=== PATIENT | female | born 1945 | race Asian ===

== ENCOUNTER 2020-02-06 13:41 | Inpatient (IN) | payer MEDICARE, OTHER ==
[~2020-02-06] VITALS: Ht 147.3 cm; Wt 40.0 kg
[2020-02-06 13:42] VITALS: BP 142/85
--- NOTE | 2020-02-06 14:00 | NUR ---
ED Nurse Note: Pt was brought in by ambulance from home d/t RT shoulder pain extending to her arm. Pt is AOx3, belarusian in speaking. Per pt, she had a fall last morning but pain got worsen today; pt denies any loss of consciousness nor any head trauma, VSS, on RA, afebrile on triage. Placed on bed; safety measures in placed.
--- NOTE | 2020-02-06 14:01 | NUR ---
ED Nurse Note: x-ray at bedside.
[2020-02-06] MEDS ORDERED: Morphine Sulfate 2mg/ml Inj(IV/IM USE ONLY) IVP ONE (15:15)
--- NOTE | 2020-02-06 15:20 | Emergency Room Report ---
History of Present Illness General Chief Complaint: Multiple Trauma/Fall Source: EMS Present Illness HPI Disclaimer: Please note that this report is being documented using DRAGON technology. This can lead to erroneous entry secondary to incorrect interpretation by the dictating instrument. HPI: 74-year-old female presents for evaluation of right shoulder pain. According to patient and her she had a fall from standing last week onto her right side. Denies head injury, loss of conscious, seizure-like activity, back pain. She is reporting pain in the right shoulder and right chest. She is unable to move her right arm. Denies numbness or tingling. Denies skin breakdown or laceration. Her confirms that she did not hit her head and has been trying to take care of her. Did not take any medication prior to arrival. No other injuries reported. No other complaints from patient at this time. PMH: Patient denies PSH: Patient denies Allergies: Patient denies Social Hx: Patient denies Allergies: Coded Allergies: No Known Allergies (Unverified , 02/06/20) COVID-19 Screening Contact w/high risk pt: No Experienced COVID-19 symptoms?: No COVID-19 Testing performed INTERACTIVE DIGITAL MEDIA SPECIALIST: No Nursing Documentation-PMH Past Medical History: No History, Except For Review of Systems All Other Systems: negative except mentioned in HPI Physical Exam Vital Signs Date Time Temp Pulse Resp B/P (MAP) Pulse Ox O2 Delivery O2 Flow Rate FiO2 02/06/20 13:35 96.6 108 142/85 (104) 98 Room Air General: Awake and alert, appears uncomfortable HEENT: NC/AT. EOMI. Chest Wall: Tenderness palpation over the anterior, mid axillary and mid scapular line on the right side without palpable crepitus or deformity. Cardiovascular: Slightly tachycardic. S1 and S2 normal. No murmur appreciated Resp: Normal work of breathing. No cough, wheezing or crackles appreciated Abdomen: Abdomen is soft, nondistended. Nontender Skin: Intact. No abrasions, laceration or rash over the exposed skin MSK: Normal tone and bulk. Unable to actively or passively move the right shoulder secondary to pain. No obvious gross deformity or edema. No tenderness in the elbow wrist or hand. 2+ radial pulse. Neuro: Awake and alert. Mentating appropriately. Medical Decision Making Diagnostic Impression: Primary Impression: Ribs, multiple fractures Additional Impression: Humeral head fracture ER Course Is a 74-year-old female presenting for evaluation 1 week after a fall complaining of right-sided chest and shoulder pain. Concern for fracture x-ray of the right shoulder was obtained which demonstrated multiple nondisplaced rib fractures as well as possible humeral head fracture. CT scan of the chest and shoulder ordered. Labs for admission were obtained and returned within normal limits. She will be admitted to panel physician, Dr. Francois. Orthopedic surgery consulted. Family at bedside. They agree with this treatment plan. Laboratory Tests Test 02/06/20 15:36 02/06/20 17:20 White Blood Count 9.7 K/UL (4.8-10.8) Red Blood Count 4.31 M/UL (4.20-5.40) Hemoglobin 14.0 G/DL (12.0-16.0) Hematocrit 40.1 % (37.0-47.0) Mean Corpuscular Volume 93 FL (80-99) Mean Corpuscular Hemoglobin 32.4 PG (27.0-31.0) H Mean Corpuscular Hemoglobin Concent 34.8 G/DL (32.0-36.0) Red Cell Distribution Width 11.8 % (11.6-14.8) Platelet Count 171 K/UL (150-450) Mean Platelet Volume 5.5 FL (6.5-10.1) L Neutrophils (%) (Auto) 77.3 % (45.0-75.0) H Lymphocytes (%) (Auto) 15.0 % (20.0-45.0) L Monocytes (%) (Auto) 6.3 % (1.0-10.0) Eosinophils (%) (Auto) 0.3 % (0.0-3.0) Basophils (%) (Auto) 1.1 % (0.0-2.0) Prothrombin Time 10.7 SEC (9.30-11.50) Prothrombin Time INR 1.0 (0.9-1.1) Activated Partial Thromboplast Time 24 SEC (23-33) Sodium Level 133 MMOL/L (136-145) L Potassium Level 5.1 MMOL/L (3.5-5.1) Chloride Level 98 MMOL/L (98-107) Carbon Dioxide Level 22 MMOL/L (21-32) Anion Gap 13 mmol/L (5-15) Blood Urea Nitrogen 18 mg/dL (7-18) Creatinine 0.7 MG/DL (0.55-1.30) Estimated Glomerular Filtration Rate > 60 mL/min (>60) Glucose Level 96 MG/DL (74-106) Calcium Level 8.8 MG/DL (8.5-10.1) Total Bilirubin 1.3 MG/DL (0.2-1.0) H Direct Bilirubin 0.4 MG/DL (0.0-0.3) H Aspartate Amino Transferase (AST) 33 U/L (15-37) Alanine Aminotransferase (ALT) 24 U/L (12-78) Alkaline Phosphatase 97 U/L (46-116) Total Protein 8.2 G/DL (6.4-8.2) Albumin 3.3 G/DL (3.4-5.0) L Globulin 4.9 g/dL Albumin/Globulin Ratio 0.7 (1.0-2.7) L Urine Color Yellow Urine Appearance Clear Urine pH 5 (4.5-8.0) Urine Specific [place] 1.025 (1.005-1.035) Urine Protein 2+ (NEGATIVE) H Urine Glucose (UA) Negative (NEGATIVE) Urine Ketones 4+ (NEGATIVE) H Urine Blood 5+ (NEGATIVE) H Urine Nitrite Negative (NEGATIVE) Urine Bilirubin Negative (NEGATIVE) Urine Urobilinogen 1 MG/DL (0.0-1.0) H Urine Leukocyte Esterase Negative (NEGATIVE) Urine RBC 2-4 /HPF (0 - 2) H Urine WBC 0-2 /HPF (0 - 2) Urine Squamous Epithelial Cells Few /LPF (NONE/OCC) Urine Bacteria Occasional /HPF (NONE) Other X-Ray Diagnostic Results Other X-Ray Diagnostic Results : X-Ray ordered: Right shoulder # of Views/Limited Vs Complete: 3 View Indication: Pain EP Interpretation: Yes Interpretation: no dislocation, other - Deformity of the humeral head oblique view and multiple mildly displaced rib fractures on the right side. Impression: Other - Humeral head fracture and rib fractures Electronically Signed by: Electronically signed by Dr. Barak Tijerina CT/MRI/US Diagnostic Results CT/MRI/US Diagnostic Results : Impression IMPRESSION: 1. Acute impacted right humeral neck fracture. 2. Acute fracture of the lateral right third through sixth ribs. 3. Cystic bronchiectasis with focal areas of consolidation with the right middle lobe. An infectious process is not excluded. Last Vital Signs Date Time Temp Pulse Resp B/P (MAP) Pulse Ox O2 Delivery O2 Flow Rate FiO2 02/06/20 13:42 108 Room Air 02/06/20 13:42 96.6 142/85 98 Disposition: ADMITTED INPATIENT Condition: Serious Scripts No Active Prescriptions or Reported Meds Referrals: NON PHYSICIAN (PCP) Barak Tijerina MD Feb 06, 2020 15:20
--- NOTE | 2020-02-06 15:43 | NUR ---
ED Nurse Note: pt went to ct
[2020-02-06 15:52] LABS: BASOPHILS % (AUTO) 1.1 % (0.0-2.0); EOSINOPHILS % (AUTO) 0.3 % (0.0-3.0); HEMATOCRIT 40.1 % (37.0-47.0); MEAN CORPUSCULAR VOLUME 93 FL (80-99); MONOCYTES % (AUTO) 6.3 % (1.0-10.0); NEUTROPHILS % (AUTO) 77.3 % (45.0-75.0); PLATELET COUNT 171 K/UL (150-450); RED BLOOD COUNT 4.31 M/UL (4.20-5.40); RED CELL DISTRIBUTION WIDTH 11.8 % (11.6-14.8); WHITE BLOOD COUNT 9.7 K/UL (4.8-10.8)
[2020-02-06 15:53] LABS: ANION GAP 13 mmol/L (5-15); BLOOD UREA NITROGEN 18 mg/dL (7-18); CALCIUM 8.8 MG/DL (8.5-10.1); CARBON DIOXIDE 22 MMOL/L (21-32); CHLORIDE 98 MMOL/L (98-107); CREATININE 0.7 MG/DL (0.55-1.30); POTASSIUM 5.1 MMOL/L (3.5-5.1); SODIUM 133 MMOL/L (136-145)
--- NOTE | 2020-02-06 15:56 | NUR ---
ED Nurse Note: Pt refused CT; returned at room, notified ERMD.
[2020-02-06 16:04] LABS: ALANINE AMINOTRANSFERASE 24 U/L (12-78); ALBUMIN 3.3 G/DL (3.4-5.0); ALBUMIN/GLOBULIN RATIO 0.7 (1.0-2.7); ALKALINE PHOSPHATASE 97 U/L (46-116); ASPARTATE AMINO TRANSFERASE 33 U/L (15-37); BILIRUBIN,TOTAL 1.3 MG/DL (0.2-1.0)
[2020-02-06 16:06] LABS: BILIRUBIN,DIRECT 0.4 MG/DL (0.0-0.3)
[2020-02-06 17:15] VITALS: BP 135/78
[2020-02-06 17:36] LABS: APPEARANCE,URINE CLEAR; BILIRUBIN, URINE NEGATIVE (NEGATIVE); COLOR,URINE YELLOW; GLUCOSE, URINE (UA) NEGATIVE (NEGATIVE); KETONES,URINE 4+ (NEGATIVE); LEUKOCYTE ESTERASE ,URINE NEGATIVE (NEGATIVE); NITRITE,URINE NEGATIVE (NEGATIVE); PH,URINE 5 (4.5-8.0); PROTEIN,URINE 2+ (NEGATIVE); UROBILINOGEN,URINE 1 MG/DL (0.0-1.0)
--- NOTE | 2020-02-06 18:54 | NUR ---
ED Nurse Note: pt returned from CT
--- NOTE | 2020-02-06 19:14 | NUR ---
ED Nurse Note: Pt resting in bed, VSS no ss of distress noted. will continue to monitor.
--- NOTE | 2020-02-06 19:14 | NUR ---
ED Nurse Note: report given to LUCIO Jauregui for continuity of care
[2020-02-06 19:15] VITALS: BP 129/83
--- NOTE | 2020-02-06 20:12 | NUR ---
NURSE NOTES: Received report from ER. Awaiting for patient to arrive.
--- NOTE | 2020-02-06 20:12 | NUR ---
ED Nurse Note: Report given to [facility] on MS unit
--- NOTE | 2020-02-06 20:25 | NUR ---
ER DISCHARGE NOTE: Patient is cleared to be discharged to MS unit per ERMD, pt is aox4, 99% on room air, with stable vital signs. pt was able to verbalize understanding. pt is able to ambulate with steady gait. pt took all belongings. Report given to LUCIO Wall on MS unit. Pt transferred to unit with 1 INVESTMENT UNDERWRITER
--- NOTE | 2020-02-06 20:30 | NUR ---
NURSE NOTES: Patient arrived on the unit. Oriented to the unit and the room. Vital signs stable condition. No skin issues. Belongings confirmed. Nepali speaking. Will continue to monitor and provide care as ordered.
--- NOTE | 2020-02-06 20:44 | NUR ---
NURSE NOTES: Reached Dr. Francois for admission orders. Received order to contact Dr. Chong for admission orders.
--- NOTE | 2020-02-06 20:52 | NUR ---
NURSE NOTES: Reached Dr. Chong for admission orders. Admission order received. Will carry out the order as given.
[2020-02-06] MEDS: Heparin 5000 units/ml inj SUBQ SCH (21:15)
[2020-02-06] MEDS ORDERED: Zolpidem 5mg tab ORAL PRN (21:15)
--- NOTE | 2020-02-06 22:10 | NUR ---
NURSE NOTES: Patient refused heparin. Explained the benefit and risk x3. Patient continues to refuse saying she doesn't want to take anything at this time.
--- NOTE | 2020-02-06 23:00 | NUR ---
NURSE NOTES: Patient verbalized that patient is confused about the hospitalization. Patient requested to speak with her son, Mohan Vidal. Connected them via a phone call. After the phone call, RN explained about the hospitalization again. Patient was able to verbalize understanding and agreed to hospitalization at this time. Informed about the patient's rights. Will continue to monitor the patient and provide care as ordered.
[2020-02-07] VITALS: BP 120/80
[2020-02-07 04:00] VITALS: BP 120/68
[2020-02-07 07:24] LABS: EOSINOPHILS % (AUTO) 0.8 % (0.0-3.0); HEMATOCRIT 36.5 % (37.0-47.0); HEMOGLOBIN 12.7 G/DL (12.0-16.0); LYMPHOCYTES % (AUTO) 21.4 % (20.0-45.0); MEAN CORPUSCULAR VOLUME 89 FL (80-99); MONOCYTES % (AUTO) 7.7 % (1.0-10.0); NEUTROPHILS % (AUTO) 69.1 % (45.0-75.0); PLATELET COUNT 221 K/UL (150-450); RED BLOOD COUNT 4.08 M/UL (4.20-5.40); RED CELL DISTRIBUTION WIDTH 10.9 % (11.6-14.8); WHITE BLOOD COUNT 6.6 K/UL (4.8-10.8)
[2020-02-07 07:35] LABS: ANION GAP 10 mmol/L (5-15); BLOOD UREA NITROGEN 19 mg/dL (7-18); CARBON DIOXIDE 26 MMOL/L (21-32); CHLORIDE 99 MMOL/L (98-107); CREATININE 0.8 MG/DL (0.55-1.30); POTASSIUM 4.3 MMOL/L (3.5-5.1); SODIUM 135 MMOL/L (136-145)
--- NOTE | 2020-02-07 07:40 | NUR ---
NURSE HAND-OFF: Important Events on Shift: New admission. Patient Status:Stable Diet:Regular Diet Pending Orders:None Pending Results/Labs: Results of CT/Xray results not available on imagings Pending MD notification:None Latest Vital Signs: Temperature 97.7 , Pulse 78 , B/P 120 /68 , Respiratory Rate 18 , O2 SAT 95 , Room Air, O2 Flow Rate . Vital Sign Comment:Stable Latest Quiroz Fall Score: 55 Fall Risk: High Risk Safety Measures: Call light Within Reach, Bed Alarm Zone 1, Side Rails Side Rails x2, Bed position Low and Locked. Fall Precautions: Yellow Socks Yellow Gown Door Sign Patient Fall Education Report given to LUCIO Landa.
--- NOTE | 2020-02-07 07:45 | NUR ---
NURSE NOTES: Received patient in bed,awake, alert and oriented x4. Patient verbalized " I do not know why I am here. I want to go home." RN explained to the patient about her condition and orientation given. Patient stated that it is her first hospitalization. RN talked to the patient in Kiswahili in a calm manner and education and emotional support given. Bed is in lowest position and locked. Call light is within reach. Bed alarm is on for safety due to h/o fall. Patient noted with bruise on right upper arm and unable to move her right upper ex's due to pain and fx. Patient complains of pain when trying to move her ex's but no pain when resting. Will continue to monitor. Patient refused to eat. Encouraged patient to eat. Will continue to monitor.
[2020-02-07 08:00] VITALS: BP 108/68
[2020-02-07] MEDS: Heparin 5000 units/ml inj SUBQ SCH ×2 (08:44→20:08)
--- NOTE | 2020-02-07 09:05 | NUR ---
NURSE NOTES: Patient refused heparin SQx3. RN educated on medication and the risks and benefits. Patient fully understood but refused x3. Dr. Francois is aware of refusal of med and food. Will continue to monitor.
--- NOTE | 2020-02-07 09:30 | NUR ---
NURSE NOTES: 2D echo is in progress.
--- NOTE | 2020-02-07 10:10 | NUR ---
NURSE NOTES: Patient is Jehovah witness, per patient, no blood transfusion but surgery is ok if needed.
[2020-02-07 12:00] VITALS: BP 110/69
--- NOTE | 2020-02-07 12:15 | History and Physical Report ---
DATE OF ADMISSION: 02/06/2020 TIME SEEN: 9 a.m. CONSULTANTS: 1. Reji Chauhan MD. 2. Jesus Alberto Chong MD. CHIEF COMPLAINT: Fall, right humeral head fracture, rib fracture. BRIEF HISTORY: This is a 74-year-old female who lives at home with family, on the street apparently tripped and fell over and sustained a fall injuring her right shoulder and rib, came to [place], diagnosed with right humeral head fracture and rib fracture and admitted to medical floor. Currently, calm, in bed, no complaint. The patient did not lose any consciousness or have any chest pain at this time. Currently calm in bed, slight right shoulder pain, no complaint. REVIEW OF SYSTEMS: No chest pain. No shortness of breath. No nausea, vomiting, or diarrhea. PAST MEDICAL HISTORY: Nothing. PAST SURGICAL HISTORY: None. MEDICATIONS: Include Tylenol, clonidine, zolpidem, heparin, morphine. ALLERGIES: Denies. SOCIAL HISTORY: No smoking. No alcohol. No intravenous drug abuse. FAMILY HISTORY: Noncontributory. PHYSICAL EXAMINATION: GENERAL: Calm in bed, oriented x3, no acute distress. VITAL SIGNS: Temperature is 97 degrees, pulse 97, respiratory rate 20, blood pressure 120/80. CARDIOVASCULAR: No murmur. LUNGS: Distant and clear. ABDOMEN: Positive bowel sounds. Soft, nontender, nondistended. EXTREMITIES: No cyanosis or edema. Her right shoulder is flexed at 90 degrees and slightly guarding. NEUROLOGIC: The patient moves all extremities, slightly weak. LABORATORY DATA: Labs at this time show CBC is normal. BMP shows sodium 135, BUN 19, otherwise BMP is normal. Albumin 3.3. INR is 1.0 and PTT is 24. Urinalysis is 5+ blood, 4+ ketone, 2+ protein. ASSESSMENT: Fall, right humeral head fracture, rib fracture. PLAN: 1. PT. 2. Dietary followup. 3. Pain control. 4. Resume home medications. 5. eval. 6. CBC and BMP in the morning. Darryl Francois D.O. DR: Layne JOB#: [id number] CC:
--- NOTE | 2020-02-07 13:00 | NUR ---
NURSE NOTES: RN paged Dr. Chauhan if doctor is going to see the patient today. Awaiting for return call.Patient consumed 75% of lunch.
--- NOTE | 2020-02-07 15:30 | NUR ---
NURSE NOTES: RN received order from Dr. Chauhan to provide arm sling. Arm sling is @ the bedside. Dr. Chauhan will see the patient tonight or early tomorrow morning. Patient's son Mohan Vidal wanted to talk to Dr. Chauhan and given son's phone number to Dr. Chauhan.
[2020-02-07 16:00] VITALS: BP 122/73
--- NOTE | 2020-02-07 18:14 | Cardiac Electrophysiology PN ---
Subjective Subjective [id number] Objective Last 24 Hour Vital Signs Date Time Temp Pulse Resp B/P (MAP) Pulse Ox O2 Delivery O2 Flow Rate FiO2 02/07/20 16:00 97.9 89 18 122/73 (89) 95 02/07/20 12:00 97.5 83 18 110/69 (83) 97 02/07/20 09:00 Room Air 02/07/20 08:00 98.0 89 18 108/68 (81) 95 02/07/20 04:00 78 18 120/68 (85) 95 02/07/20 00:00 97.7 97 20 120/80 (93) 95 02/06/20 22:48 Room Air 02/06/20 20:25 97.2 91 16 125/76 99 Room Air 02/06/20 19:15 97.2 92 16 129/83 99 Room Air Laboratory Tests Test 02/07/20 06:40 White Blood Count 6.6 K/UL (4.8-10.8) Red Blood Count 4.08 M/UL (4.20-5.40) L Hemoglobin 12.7 G/DL (12.0-16.0) Hematocrit 36.5 % (37.0-47.0) L Mean Corpuscular Volume 89 FL (80-99) Mean Corpuscular Hemoglobin 31.2 PG (27.0-31.0) H Mean Corpuscular Hemoglobin Concent 34.9 G/DL (32.0-36.0) Red Cell Distribution Width 10.9 % (11.6-14.8) L Platelet Count 221 K/UL (150-450) Mean Platelet Volume 5.2 FL (6.5-10.1) L Neutrophils (%) (Auto) 69.1 % (45.0-75.0) Lymphocytes (%) (Auto) 21.4 % (20.0-45.0) Monocytes (%) (Auto) 7.7 % (1.0-10.0) Eosinophils (%) (Auto) 0.8 % (0.0-3.0) Basophils (%) (Auto) 1.0 % (0.0-2.0) Sodium Level 135 MMOL/L (136-145) L Potassium Level 4.3 MMOL/L (3.5-5.1) Chloride Level 99 MMOL/L (98-107) Carbon Dioxide Level 26 MMOL/L (21-32) Anion Gap 10 mmol/L (5-15) Blood Urea Nitrogen 19 mg/dL (7-18) H Creatinine 0.8 MG/DL (0.55-1.30) Estimat Glomerular Filtration Rate > 60 mL/min (>60) Glucose Level 104 MG/DL (74-106) Calcium Level 9.0 MG/DL (8.5-10.1) Jesus Alberto Chong MD Feb 07, 2020 18:14
--- NOTE | 2020-02-07 19:15 | NUR ---
NURSE NOTES: Received report from LUCIO Landa. Pt Serbian speaking, resting in bed, AAO x 3, on room air. Pt confused and said " I need to go to home." Arm sling applied on R arm. IV site intact and patent. Fall risk maintained. No labored breathing. Bed locked, lowest position, alarm on, side rails up, call light within reach. Will continue to monitor.
--- NOTE | 2020-02-07 19:29 | NUR ---
NURSE HAND-OFF: Important Events on Shift:refused heparin. Patient Status: stable Diet: regular Pending Orders: Pending Results/Labs: Pending MD notification: Latest Vital Signs: Temperature 97.9 , Pulse 89 , B/P 122 /73 , Respiratory Rate 18 , O2 SAT 95 , Room Air, O2 Flow Rate . Vital Sign Comment: Latest Quiroz Fall Score: 55 Fall Risk: High Risk Safety Measures: Call light Within Reach, Bed Alarm Zone 2, Side Rails Side Rails x3, Bed position Low and Locked. Fall Precautions: Yellow Socks Yellow Gown Door Sign Patient Fall Education Report given to Narcisa and endorsed plan of care.
[2020-02-07 20:00] VITALS: BP 110/70
--- NOTE | 2020-02-07 22:15 | Consultation ---
DATE OF CONSULTATION: 02/07/2020 CARDIOLOGY CONSULTATION CONSULTING PHYSICIAN: Jesus Alberto Chong MD REFERRING PHYSICIAN: Darryl Francois DO REASON FOR CONSULTATION: Preoperative clearance. HISTORY OF PRESENT ILLNESS: Patient is a 74-year-old lady who presented to the emergency room with right shoulder pain. According to the patient and , she had a fall last week on the right side and did not have any head injury or loss of consciousness or any seizure-like activity. Right shoulder and right chest pain continued. Patient came to the emergency room. Her confirms that she did not hit her head and is trying to take care of her. In the emergency room, patient's blood pressure was 142/85 with a pulse of 100, and pulse ox 98%. Patient was noted to have right shoulder fracture as well as nondisplaced rib fracture. Cardiology consultation was requested for preoperative clearance in case patient would need it. REVIEW OF SYSTEMS: Negative other than what was mentioned in the history of present illness. PAST MEDICAL HISTORY: As mentioned above. FAMILY HISTORY: Noncontributory. SOCIAL HISTORY: She lives at home. Does not smoke or drink alcohol. PHYSICAL EXAMINATION: VITAL SIGNS: Blood pressure is 122/73, pulse 89, respirations 18, temperature 97.9. HEAD AND NECK: Showed no JVD. LUNGS: Clear. CARDIOVASCULAR: Shows regular S1 and S2 with no gallop or murmur. ABDOMEN: Soft. EXTREMITIES: Right shoulder is in a sling. Her CT showed acute impacted right humeral neck fracture and acute fracture of the lateral right third through sixth ribs. LABORATORY AND DIAGNOSTIC DATA: Her labs show white count of 6.3, hemoglobin 12.7, hematocrit 36.5, platelet count 221. Sodium 135, potassium 4.3, BUN 19, creatinine 0.8, and glucose of 104. INR is 1. ASSESSMENT AND PLAN: 1. Right shoulder as well as right rib fracture. Patient denies any prior myocardial infarction or coronary artery disease or any congestive heart failure. Her echocardiogram showed ejection fraction of 60%. We will get an EKG and keep the patient on p.r.n. clonidine for blood pressure management. 2. Humeral head fracture and multiple rib fractures. Further evaluation per Orthopedic Surgery. Thank you very much for allowing me to participate in the care of this patient. Please do not hesitate to contact me for any questions regarding my evaluation. Jesus Alberto Chong M.D. DR: MIKAELA JOB#: [id number] CC:
[2020-02-08] VITALS: BP 107/73
[2020-02-08 04:00] VITALS: BP 110/70
--- NOTE | 2020-02-08 06:18 | Diagnostic Imaging Report ---
EXAM: XR Right Shoulder Complete, 2 or More Views CLINICAL HISTORY: TRAUMA TECHNIQUE: Two or more views of the right shoulder. COMPARISON: None FINDINGS: Bones/joints: Irregularity of the cortex of the right humeral head on the external rotation view could represent a nondisplaced fracture. Further evaluation could be performed with CT or MRI if clinically indicated. Displaced fractures of the right posterior seventh, eighth, and ninth ribs. No dislocation. Osteopenia. Soft tissues: Unremarkable. IMPRESSION: 1. Irregularity of the cortex of the right humeral head on the external rotation view could represent a nondisplaced fracture. Further evaluation could be performed with CT or MRI if clinically indicated. 2. Displaced fractures of the right posterior seventh, eighth, and ninth ribs.
--- NOTE | 2020-02-08 06:19 | Diagnostic Imaging Report ---
EXAM: CT Right Upper Extremity Without Intravenous Contrast, Shoulder CLINICAL HISTORY: INJ TECHNIQUE: Axial computed tomography images of the right shoulder without intravenous contrast. CTDI is 6.5 mGy and DLP is 209.90 mGy-cm. One or more of the following dose reduction techniques were used: automated exposure control, adjustment of the mA and/or kV according to patient size, use of iterative reconstruction technique. COMPARISON: No relevant prior studies available. FINDINGS: Bones/joints: Acute impacted right humeral neck fracture. Acute fracture of the lateral right third through sixth ribs. No dislocation. Soft tissues: Unremarkable. Lung apices: Cystic bronchiectasis with focal areas of consolidation with the right middle lobe. An infectious process is not excluded. Pleural space: Biapical pleural-parenchymal scarring. Trace right- sided pleural effusion.. IMPRESSION: 1. Acute impacted right humeral neck fracture. 2. Acute fracture of the lateral right third through sixth ribs. 3. Cystic bronchiectasis with focal areas of consolidation with the right middle lobe. An infectious process is not excluded.
--- NOTE | 2020-02-08 06:19 | Diagnostic Imaging Report ---
EXAM: CT Chest Without Intravenous Contrast CLINICAL HISTORY: INJ TECHNIQUE: Axial computed tomography images of the chest without intravenous contrast. CTDI is 6.5 mGy and DLP is 209.9 mGy-cm. One or more of the following dose reduction techniques were used: automated exposure control, adjustment of the mA and/or kV according to patient size, use of iterative reconstruction technique. COMPARISON: No relevant prior studies available. FINDINGS: Lungs: Scattered areas of scarring atelectasis within the upper lobes with calcification of the left. Cystic bronchiectasis with focal areas of consolidation with a right middle lobe which may be inflammatory or infectious. Pleural space: Small right pleural effusion. No pneumothorax. Heart: Unremarkable. No cardiomegaly. No significant pericardial effusion. Bones/joints: Acute impacted right humeral neck fracture. Acute fracture of the lateral right third through sixth ribs. Acute fracture of the posterior right seventh and eighth ribs. No dislocation. Soft tissues: Unremarkable. Vasculature: Unremarkable. No thoracic aortic aneurysm. Lymph nodes: Unremarkable. IMPRESSION: 1. Acute impacted right humeral neck fracture. 2. Acute fracture of the lateral right third through sixth ribs. Acute fracture of the posterior right seventh and eighth ribs. 3. Cystic bronchiectasis with focal areas of consolidation with a right middle lobe which may be inflammatory or infectious.
--- NOTE | 2020-02-08 06:20 | Cardiology Report ---
APPROVED REPORT EXAM: Two-dimensional and M-mode echocardiogram with Doppler and color Doppler. INDICATION OTHER M-Mode DIMENSIONS IVSd0.7 (0.7-1.1cm)Left Atrium (MM)2.4 (1.6-4.0cm) LVDd4.3 (3.5-5.6cm)Aortic Root2.6 (2.0-3.7cm) PWd1.0 (0.7-1.1cm)Aortic Cusp Exc.1.7 (1.5-2.0cm) IVSs1.0 cm LVDs3.1 (2.5-4.0cm) PWs0.6 cm <Conclusion> Normal left ventricular chamber size, systolic function and wall motion. Left ventricular ejection fraction estimated to be 60%. All other cardiac chamber sizes are within normal limits. Calcification of aortic valve with adequate cusp excursion. Thickened mitral valve leaflets with normal excursion. Mitral annulus and aortic root calcification. Pulmonic valve not well visualized. Normal tricuspid valve structure. IVC at normal size with physiologic collapse. A color flow and spectral Doppler study was performed and revealed: Trace mitral regurgitation. Mitral inflow indicates normal left ventricular diastolic function. Mild tricuspid regurgitation. Tricuspid systolic velocities suggests peak right ventricular systolic pressure of 30mmHg. Trace pulmonic regurgitation.
--- NOTE | 2020-02-08 06:42 | NUR ---
NURSE HAND-OFF: Important Events on Shift:AMS, confused Patient Status: stable Diet: reg Pending Orders: Pending Results/Labs: Pending MD notification: Latest Vital Signs: Temperature 97.3 , Pulse 78 , B/P 110 /70 , Respiratory Rate 16 , O2 SAT 96 , Room Air, O2 Flow Rate . Vital Sign Comment: Latest Quiroz Fall Score: 55 Fall Risk: High Risk Safety Measures: Call light Within Reach, Bed Alarm Zone 2, Side Rails Side Rails x3, Bed position Low and Locked. Fall Precautions: Yellow Socks Yellow Gown Door Sign Patient Fall Education Addendum: 02/08/20 at 0723 by SHAKEEL EATON RN RN HAND-OFF: Report given to Aliza.
[2020-02-08 06:59] LABS: HEMATOCRIT 36.7 % (37.0-47.0); HEMOGLOBIN 12.7 G/DL (12.0-16.0); LYMPHOCYTES % (AUTO) 16.1 % (20.0-45.0); MEAN CORPUSCULAR VOLUME 89 FL (80-99); MONOCYTES % (AUTO) 7.5 % (1.0-10.0); NEUTROPHILS % (AUTO) 74.4 % (45.0-75.0); PLATELET COUNT 229 K/UL (150-450); RED CELL DISTRIBUTION WIDTH 11.4 % (11.6-14.8)
[2020-02-08 07:11] LABS: ANION GAP 6 mmol/L (5-15); BLOOD UREA NITROGEN 17 mg/dL (7-18); CALCIUM 8.6 MG/DL (8.5-10.1); CARBON DIOXIDE 29 MMOL/L (21-32); CHLORIDE 103 MMOL/L (98-107); CREATININE 0.7 MG/DL (0.55-1.30); POTASSIUM 4.3 MMOL/L (3.5-5.1); SODIUM 138 MMOL/L (136-145)
--- NOTE | 2020-02-08 07:40 | NUR ---
NURSE NOTES: Report received from Narcisa VALDES. Patient seen on rounds, AxOx1-2, not in distress, currently comfortable in bed. Noted arm sling on right arm/shoulder. PIV on left forearm patent and intact. Pt is incontinent, no skin issues noted. Bed low and locked, siderails up x2, zone alarms on 1, patient is a high fall risk, fall precautions in place, call light placed within reach and instructed to call nurse for assistance. Will continue to monitor.
[2020-02-08 08:00] VITALS: BP 133/63
--- NOTE | 2020-02-08 08:30 | Consultation ---
Consult Note Consult Note 74 yo female with fall onto right side. multiple rib fractures and rt impacted humeral neck fracture. no surgery needed. sling immobilization with gentle ROM rt elbow/hand/wrist. Pendulum exercises . nwb rt UE. f/u Dr Chauhan in 2 weeks for updated Xray Ashlyn Manzano Feb 08, 2020 08:30
[2020-02-08] MEDS: Heparin 5000 units/ml inj SUBQ SCH ×2 (08:54→20:10)
--- NOTE | 2020-02-08 09:45 | General Progress Note ---
Subjective Constitutional: Reports: weakness Allergies: Coded Allergies: PENICILLINS (Verified Allergy, Unknown, 02/06/20) Patient verbalized allergies to penicillin All Systems: reviewed and negative except above Subjective calm sitting sl gen pain Objective Last 24 Hour Vital Signs Date Time Temp Pulse Resp B/P (MAP) Pulse Ox O2 Delivery O2 Flow Rate FiO2 02/08/20 04:00 97.3 78 16 110/70 (83) 96 02/08/20 00:00 97.8 92 16 107/73 (84) 95 02/07/20 21:00 Room Air 02/07/20 20:00 98.2 90 16 110/70 (83) 95 02/07/20 16:00 97.9 89 18 122/73 (89) 95 02/07/20 12:00 97.5 83 18 110/69 (83) 97 Intake and Output 02/07/20 02/08/20 19:00 07:00 Intake Total 1000 ml Balance 1000 ml Intake Other 1000 ml # Voids 3 Laboratory Tests 02/08/20 06:10: White Blood Count 6.0, Red Blood Count 4.10L, Hemoglobin 12.7, Hematocrit 36.7L, Mean Corpuscular Volume 89, Mean Corpuscular Hemoglobin 31.0, Mean Corpuscular Hemoglobin Concent 34.7, Red Cell Distribution Width 11.4L, Platelet Count 229, Mean Platelet Volume 5.0L, Neutrophils (%) (Auto) 74.4, Lymphocytes (%) (Auto) 16.1L, Monocytes (%) (Auto) 7.5, Eosinophils (%) (Auto) 1.0, Basophils (%) (Auto) 1.0, Sodium Level 138, Potassium Level 4.3, Chloride Level 103, Carbon Dioxide Level 29, Anion Gap 6, Blood Urea Nitrogen 17, Creatinine 0.7, Estimat Glomerular Filtration Rate > 60, Glucose Level 120H, Calcium Level 8.6, Troponin I 0.000, Pro-B-Type Natriuretic Peptide 282H Height (Feet): 4 Height (Inches): 10.00 Weight (Pounds): 91 General Appearance: lethargic EENT: normal ENT inspection Neck: normal alignment Cardiovascular: normal peripheral pulses, normal rate, regular rhythm Respiratory/Chest: chest wall non-tender, lungs clear, normal breath sounds Abdomen: normal bowel sounds, non tender, soft Extremities: normal inspection Edema: no edema noted Arm (L), no edema noted Arm (R), no edema noted Leg (L), no edema noted Leg (R), no edema noted Pedal (L), no edema noted Pedal (R), no edema noted Generalized Neurologic: motor weakness Skin: normal pigmentation, warm/dry Assessment/Plan Problem List: (1) Weak ICD Codes: R53.1 - Weakness SNOMED: 48922850 (2) Humeral head fracture ICD Codes: S42.293A - Other displaced fracture of upper end of unspecified humerus, initial encounter for closed fracture SNOMED: 269135322 (3) Pain ICD Codes: R52 - Pain, unspecified SNOMED: 38487381 (4) Ribs, multiple fractures ICD Codes: S22.49XA - Multiple fractures of ribs, unspecified side, initial encounter for closed fracture SNOMED: 9464376 Status: unchanged Assessment/Plan: pt diet pain control cbc bmp am aru eval and transfer Darryl Francois DO Feb 08, 2020 09:45
--- NOTE | 2020-02-08 11:09 | NUR ---
*-*DISCHARGE PLANNING*-* PATIENT HAS BEEN REFERRED TO: VICTORIA CANO P: [phone]
[2020-02-08 12:00] VITALS: BP 109/67
--- NOTE | 2020-02-08 12:34 | Consultation ---
History of Present Illness General Date patient seen: Feb 08, 2020 Time patient seen: 12:00 - pm Chief Complaint: Right shoulder fracture Referring physician: Alessandro Reason for Consultation: Pain Management consultation Present Illness HPI This is a 74 year old female being seen on the med/surge floor of [facility]. She was admitted under the care of Dr. Francois due to fall found to have humeral head fractures of right shoulder and right rib fractures of 7, 8 and 9th rib. She den ies pain and is sitting up in bed eating lunch. We were consulted so pt has adequate pain control while here in the hospital. Allergies: Coded Allergies: PENICILLINS (Verified Allergy, Unknown, 02/06/20) Patient verbalized allergies to penicillin Medication History No Active Prescriptions or Reported Meds Patient History Healthcare decision maker Resuscitation status Advanced Directive on File Past Medical/Surgical History Past Medical/Surgical History: (1) Weak Review of Systems Constitutional: Reports: weakness Eye: Reports: no symptoms ENT: Reports: no symptoms Respiratory: Reports: no symptoms Cardiovascular: Reports: no symptoms Gastrointestinal: Reports: no symptoms Genitourinary: Reports: no symptoms Musculoskeletal: Reports: joint pain Skin: Reports: no symptoms Psychiatric: Reports: no symptoms Neurological: Reports: no symptoms Endocrine: Reports: no symptoms Hematologic/Lymphatic: Reports: no symptoms Physical Exam General Appearance: no apparent distress, alert HEENT: PERRL Neck: non-tender, normal alignment Respiratory/Chest: decreased breath sounds Abdomen: non tender, soft Extremities: other - right shoulder decreased ROM Neurologic: alert, oriented x 3 Last 24 Hour Vital Signs Date Time Temp Pulse Resp B/P (MAP) Pulse Ox O2 Delivery O2 Flow Rate FiO2 02/08/20 11:29 Room Air 02/08/20 09:00 Room Air 02/08/20 08:00 98.2 85 18 133/63 (86) 97 02/08/20 04:00 97.3 78 16 110/70 (83) 96 02/08/20 00:00 97.8 92 16 107/73 (84) 95 02/07/20 21:00 Room Air 02/07/20 20:00 98.2 90 16 110/70 (83) 95 02/07/20 16:00 97.9 89 18 122/73 (89) 95 Intake and Output 02/07/20 02/08/20 19:00 07:00 Intake Total 1000 ml Balance 1000 ml Intake Other 1000 ml # Voids 3 Laboratory Tests Test 02/08/20 06:10 White Blood Count 6.0 K/UL (4.8-10.8) Red Blood Count 4.10 M/UL (4.20-5.40) L Hemoglobin 12.7 G/DL (12.0-16.0) Hematocrit 36.7 % (37.0-47.0) L Mean Corpuscular Volume 89 FL (80-99) Mean Corpuscular Hemoglobin 31.0 PG (27.0-31.0) Mean Corpuscular Hemoglobin Concent 34.7 G/DL (32.0-36.0) Red Cell Distribution Width 11.4 % (11.6-14.8) L Platelet Count 229 K/UL (150-450) Mean Platelet Volume 5.0 FL (6.5-10.1) L Neutrophils (%) (Auto) 74.4 % (45.0-75.0) Lymphocytes (%) (Auto) 16.1 % (20.0-45.0) L Monocytes (%) (Auto) 7.5 % (1.0-10.0) Eosinophils (%) (Auto) 1.0 % (0.0-3.0) Basophils (%) (Auto) 1.0 % (0.0-2.0) Sodium Level 138 MMOL/L (136-145) Potassium Level 4.3 MMOL/L (3.5-5.1) Chloride Level 103 MMOL/L (98-107) Carbon Dioxide Level 29 MMOL/L (21-32) Anion Gap 6 mmol/L (5-15) Blood Urea Nitrogen 17 mg/dL (7-18) Creatinine 0.7 MG/DL (0.55-1.30) Estimat Glomerular Filtration Rate > 60 mL/min (>60) Glucose Level 120 MG/DL (74-106) H Calcium Level 8.6 MG/DL (8.5-10.1) Troponin I 0.000 ng/mL (0.000-0.056) Pro-B-Type Natriuretic Peptide 282 pg/mL (0-125) H Height (Feet): 4 Height (Inches): 10.00 Weight (Pounds): 91 Medications Current Medications Medications (Trade) Dose Ordered Sig/Juaquin Route PRN Reason Start Time Stop Time Status Last Admin Dose Admin Acetaminophen (Tylenol) 650 mg Q4H PRN ORAL Pain/Fever 02/06/20 21:15 03/07/20 21:14 Clonidine HCl (Catapres Tab) 0.1 mg Q4H PRN ORAL SBP>170 02/06/20 21:15 05/06/20 21:14 Heparin Sodium (Porcine) (Heparin 5000 units/ml) 5,000 units EVERY 12 HOURS SUBQ 02/06/20 21:15 03/22/20 21:14 02/08/20 08:54 Zolpidem Tartrate (Ambien) 5 mg HSPRN PRN ORAL Insomnia 02/06/20 21:15 02/13/20 21:14 Assessment/Plan Assessment/Plan: (1) Right shoulder pain (2) Right humeral fracture (3) Right chest wall pain (4) Rib fractures Patient will continue on Tylenol D/w Dr. Simmons and he concurred. David Caceres Feb 08, 2020 12:34
--- NOTE | 2020-02-08 14:15 | Consultation ---
DATE OF CONSULTATION: 02/08/2020 ORTHOPEDIC CONSULTATION CONSULTING PHYSICIAN: Reji Chauhan MD. HISTORY OF PRESENT ILLNESS: The patient is a pleasant 74-year-old female who had a fall at home onto her right side. She is complaining of right arm pain and right side pain. She was admitted to [facility] with multiple rib fractures and right humerus fracture. Orthopedics consult has been called. The patient has already been given a right upper extremity sling, which she is wearing. She has a sling on the right upper extremity, complains of pain here. PAST MEDICAL HISTORY: None. PAST SURGICAL HISTORY: None. CURRENT MEDICATIONS: Please see chart. ALLERGIES: None. SOCIAL HISTORY: She lives at home with her . She is independent with her activities. PHYSICAL EXAMINATION: GENERAL: She is a pleasant woman. She is cooperative with examination. EXTREMITIES: Exam of the right upper extremity sling is developing ecchymosis into the right upper arm with tenderness over the humerus and some swelling in this area. She can move the elbow, hand, and wrist. She is neurovascularly intact. She also has some tenderness over the right side ribs. LABORATORY AND DIAGNOSTIC DATA: X-RAY, MRI and CT: X-ray of the shoulder is reviewed. There is a nondisplaced humeral neck fracture and rib fractures of the seventh, eighth, and ninth ribs on the right side. CT of the shoulder was also reviewed noting an impacted humeral neck fracture on the right as well as showing evidence of the multiple rib fractures. IMPRESSION: 1. Right impacted humeral neck fracture. 2. Right rib fractures - 7, 8, and 9. DISCUSSION: At this time, I discussed with the patient my findings. There is no surgical intervention needed for this, but I would recommend she stay in a sling and perform gentle pendulum exercises with the shoulder as well as elbow, hand, and wrist exercises to avoid stiffness. She should be nonweightbearing on the right side and ensure medication is ordered for pain management. I would like to see her back in the office as an outpatient in two weeks for updated x-rays at which point we will advance her in her mobility and transition out of the sling if fracture appears to be stabilizing and healing. All questions were answered. with regards to rib fractures, she understands they will go onto healing although they may take time. Reji Chauhan M.D. Ann Christensen DR: Jamal JOB#: [id number] CC: LY
--- NOTE | 2020-02-08 14:15 | NUR ---
P.T Note: P.T evaluation completed and tx initiated. Please refer to P.T evaluation for current functional statues. Pt is alert, oriented to self and place but not time and current situation. Pt is periodically confused however follows commands appropriately and verbalizes needs and pain. Pt is limited by generalized weakness and pain on the R shoulder/upper arm and R rib cage 10/10 resulting to fear of mobility and resistance. Pt needed verbal cues/manual cues, extended time and MAX A x 2 to initiate and complete turning/rolling and supine to/from sitting transitions and MAX A X 1 for sit to/from standing, bed to/from chair transitions. Pt able to take 5-6 tiny steps with hand held/max a x 1 with A x 1P to follow with chair for safety. Pt tolerated entire P.T/tx session well. Will continue with POC. Recommend ARU for intensive rehab post hospital stay VS home P.T. Pt is cleared for OOB activities with nursing assist.
--- NOTE | 2020-02-08 14:21 | Cardiac Electrophysiology PN ---
Assessment/Plan Assessment/Plan 1. Right shoulder as well as right rib fracture. Patient denies any prior myocardial infarction or coronary artery disease or any congestive heart failure. Her echocardiogram showed ejection fraction of 60%. EKG showed NSR with Anterior T wave inversion 2. Humeral head fracture and multiple rib fractures. Nonsurgical per Orthopedic Surgery. Subjective Subjective No CP or SOB.Is being transferred to ARU Objective Last 24 Hour Vital Signs Date Time Temp Pulse Resp B/P (MAP) Pulse Ox O2 Delivery O2 Flow Rate FiO2 02/08/20 12:00 98.2 74 18 109/67 (81) 95 02/08/20 11:29 Room Air 02/08/20 09:00 Room Air 02/08/20 08:00 98.2 85 18 133/63 (86) 97 02/08/20 04:00 97.3 78 16 110/70 (83) 96 02/08/20 00:00 97.8 92 16 107/73 (84) 95 02/07/20 21:00 Room Air 02/07/20 20:00 98.2 90 16 110/70 (83) 95 02/07/20 16:00 97.9 89 18 122/73 (89) 95 Intake and Output 02/07/20 02/08/20 19:00 07:00 Intake Total 1000 ml Balance 1000 ml Intake Other 1000 ml # Voids 3 Laboratory Tests Test 02/08/20 06:10 White Blood Count 6.0 K/UL (4.8-10.8) Red Blood Count 4.10 M/UL (4.20-5.40) L Hemoglobin 12.7 G/DL (12.0-16.0) Hematocrit 36.7 % (37.0-47.0) L Mean Corpuscular Volume 89 FL (80-99) Mean Corpuscular Hemoglobin 31.0 PG (27.0-31.0) Mean Corpuscular Hemoglobin Concent 34.7 G/DL (32.0-36.0) Red Cell Distribution Width 11.4 % (11.6-14.8) L Platelet Count 229 K/UL (150-450) Mean Platelet Volume 5.0 FL (6.5-10.1) L Neutrophils (%) (Auto) 74.4 % (45.0-75.0) Lymphocytes (%) (Auto) 16.1 % (20.0-45.0) L Monocytes (%) (Auto) 7.5 % (1.0-10.0) Eosinophils (%) (Auto) 1.0 % (0.0-3.0) Basophils (%) (Auto) 1.0 % (0.0-2.0) Sodium Level 138 MMOL/L (136-145) Potassium Level 4.3 MMOL/L (3.5-5.1) Chloride Level 103 MMOL/L (98-107) Carbon Dioxide Level 29 MMOL/L (21-32) Anion Gap 6 mmol/L (5-15) Blood Urea Nitrogen 17 mg/dL (7-18) Creatinine 0.7 MG/DL (0.55-1.30) Estimat Glomerular Filtration Rate > 60 mL/min (>60) Glucose Level 120 MG/DL (74-106) H Calcium Level 8.6 MG/DL (8.5-10.1) Troponin I 0.000 ng/mL (0.000-0.056) Pro-B-Type Natriuretic Peptide 282 pg/mL (0-125) H Objective HEAD AND NECK: No JVD. LUNGS: Clear. CARDIOVASCULAR: Regular S1 and S2 with no gallop or murmur. ABDOMEN: Soft. EXTREMITIES: Right shoulder is in a sling. Jesus Alberto Chong MD Feb 08, 2020 14:21
[2020-02-08 16:00] VITALS: BP 116/73
--- NOTE | 2020-02-08 16:47 | NUR ---
CASE MANAGEMENT:REVIEW SI;RT NECK HUMERAL FRACTURE. RT 3RD-6TH RIB FRACTURE. 98.2 92 18 133/63 95% ON RA IS;HEPARIN SUBQ Q12 MED SURG STATUS DCP;FROM HOME PLAN; ARU PENDING PT EVAL NOTES
--- NOTE | 2020-02-08 19:26 | NUR ---
NURSE HAND-OFF: Important Events on Shift: No adverse events noted Patient Status: Stable Diet: Regular Pending Orders: None Pending Results/Labs: None Pending MD notification: Latest Vital Signs: Temperature 98.2 , Pulse 96 , B/P 116 /73 , Respiratory Rate 18 , O2 SAT 95 , Room Air, O2 Flow Rate . Vital Sign Comment: Latest Quiroz Fall Score: 70 Fall Risk: High Risk Safety Measures: Call light Within Reach, Bed Alarm Zone 2, Side Rails Side Rails x3, Bed position Low and Locked. Fall Precautions: Yellow Socks Yellow Gown Door Sign Patient Fall Education Report given to Ella Valladares RN.
[2020-02-08 20:00] VITALS: BP 121/60
--- NOTE | 2020-02-08 20:00 | NUR ---
NURSE NOTES: Received patient awake in bed, no s/s of acute distress, able to make needs known. Patient confused, wanting to get up to go to bathroom, reminded patient that she has a "purewick" in place and she in unable to get up to go to the bathroom at this time. Phone connected to room, son able to talk to patient via phone. Bed low and locked.
[2020-02-09] VITALS: BP 125/70
[2020-02-09 04:00] VITALS: BP 138/74
[2020-02-09 06:10] LABS: BASOPHILS % (AUTO) 1.4 % (0.0-2.0); EOSINOPHILS % (AUTO) 0.8 % (0.0-3.0); HEMATOCRIT 36.1 % (37.0-47.0); HEMOGLOBIN 12.6 G/DL (12.0-16.0); LYMPHOCYTES % (AUTO) 18.6 % (20.0-45.0); MEAN CORPUSCULAR VOLUME 90 FL (80-99); MONOCYTES % (AUTO) 8.3 % (1.0-10.0); NEUTROPHILS % (AUTO) 70.9 % (45.0-75.0); PLATELET COUNT 241 K/UL (150-450); RED CELL DISTRIBUTION WIDTH 11.4 % (11.6-14.8)
[2020-02-09 06:18] LABS: ANION GAP 3 mmol/L (5-15); BLOOD UREA NITROGEN 18 mg/dL (7-18); CALCIUM 8.8 MG/DL (8.5-10.1); CARBON DIOXIDE 31 MMOL/L (21-32); CHLORIDE 107 MMOL/L (98-107); CREATININE 0.7 MG/DL (0.55-1.30); POTASSIUM 4.8 MMOL/L (3.5-5.1); SODIUM 141 MMOL/L (136-145)
--- NOTE | 2020-02-09 07:26 | NUR ---
HAND-OFF: Report given to LUCIO Avery.
--- NOTE | 2020-02-09 07:45 | NUR ---
NURSE NOTES: PT AXOX2, TO NAME AND LOCATION. PT IS DISORIENTED TO SITUATION AND AT TIMES WILL PROVIDE A DIFFERENT ANSWER TO A QUESTION RN ASKS. PT STATES PAIN IS MINIMAL ON RIGHT SHOULDER. PT GUARDS THE RIGHT UPPER EXTREMITY WHEN BEING REPOSITIONED AND DURING BEDSIDE CARE. PT STATES SHE DOES NOT NEED PAIN MEDICATION AT THIS TIME WHEN RN EDUCATED PT ON PRN TYLENOL FOR PAIN. PT DOES ATTEMPT TO GET OUT OF BED BUT IS TOO WEAK TO LEAVE THE BED. PT IS IN SEMI-LIMON'S POSITION WITH BED IN LOWEST POSITION WITH BEDSIDE RAILS X3 RAISED. PT EDUCATED ON USING CALL LIGHT FOR ASSISTANCE. PT VERBALIZED UNDERSTANDING. WILL CONTINUE TO MONITOR.
[2020-02-09 08:00] VITALS: BP 128/72
[2020-02-09] MEDS: Heparin 5000 units/ml inj SUBQ SCH (08:46)
--- NOTE | 2020-02-09 08:49 | General Progress Note ---
Subjective Date patient seen: Feb 09, 2020 Time patient seen: 08:00 - am Allergies: Coded Allergies: PENICILLINS (Verified Allergy, Unknown, 02/06/20) Patient verbalized allergies to penicillin Subjective This is a 74 year old female being seen on the med/surge floor of [facility]. Patient is in bed and showing no signs of pain or distress. Denies pain at this time. Objective Last 24 Hour Vital Signs Date Time Temp Pulse Resp B/P (MAP) Pulse Ox O2 Delivery O2 Flow Rate FiO2 02/09/20 08:00 97.3 92 20 128/72 (90) 98 02/09/20 04:00 98.3 89 18 138/74 (95) 95 02/09/20 00:00 98.0 85 18 125/70 (88) 95 02/08/20 20:42 Room Air 02/08/20 20:00 98.4 86 18 121/60 (80) 95 02/08/20 16:00 98.2 96 18 116/73 (87) 95 02/08/20 12:00 98.2 74 18 109/67 (81) 95 02/08/20 11:29 Room Air 02/08/20 09:00 Room Air Intake and Output 02/08/20 02/09/20 19:00 07:00 Intake Total 460 ml Balance 460 ml Intake Oral 460 ml # Voids 2 2 # Bowel Movements 1 Laboratory Tests 02/09/20 05:10: White Blood Count 6.0, Red Blood Count 4.00L, Hemoglobin 12.6, Hematocrit 36.1L, Mean Corpuscular Volume 90, Mean Corpuscular Hemoglobin 31.4H, Mean Corpuscular Hemoglobin Concent 34.8, Red Cell Distribution Width 11.4L, Platelet Count 241, Mean Platelet Volume 5.4L, Neutrophils (%) (Auto) 70.9, Lymphocytes (%) (Auto) 18.6L, Monocytes (%) (Auto) 8.3, Eosinophils (%) (Auto) 0.8, Basophils (%) (Auto) 1.4, Sodium Level 141, Potassium Level 4.8, Chloride Level 107, Carbon Dioxide Level 31, Anion Gap 3L, Blood Urea Nitrogen 18, Creatinine 0.7, Estimat Glomerular Filtration Rate > 60, Glucose Level 117H, Calcium Level 8.8 Height (Feet): 4 Height (Inches): 10.00 Weight (Pounds): 91 Objective Constitutional: Reports: weakness Eye: Reports: no symptoms ENT: Reports: no symptoms Respiratory: Reports: no symptoms Cardiovascular: Reports: no symptoms Gastrointestinal: Reports: no symptoms Genitourinary: Reports: no symptoms Musculoskeletal: Reports: joint pain Skin: Reports: no symptoms Psychiatric: Reports: no symptoms Neurological: Reports: no symptoms Endocrine: Reports: no symptoms Hematologic/Lymphatic: Reports: no symptoms Assessment/Plan Assessment/Plan: (1) Right shoulder pain (2) Right humeral fracture (3) Right chest wall pain (4) Rib fractures Patient will continue on Tylenol D/w Dr. Simmons and he concurred. David Caceres Feb 09, 2020 08:49
--- NOTE | 2020-02-09 10:45 | NUR ---
NURSE NOTES: PHYSICAL THERAPIST HECTOR AT BEDSIDE. PER HECTOR, PT IS VERY UNSTEADY WHEN STANDING AND LEANS BACK. PT MAY USE BEDSIDE COMMODE IF NEEDING TO USE RESTROOM BUT NOT RECOMMENDED TO AMBULATE TO BATHROOM.
--- NOTE | 2020-02-09 11:29 | NUR ---
NURSE NOTES: RN SPOKE TO PT'S SON, AYAN, WHO IS STILL DECIDING ON TAKING HER HOME OR TO REHAB FACILITY UPON DISCHARGE. AYAN VOICED CONCERN OVER PT BEBETO COVID IF DISCHARGED TO A FACILITY. PT HAD QUESTIONS REGARDING HOME CARE AND AMBULANCE TRANSPORTATION. RN DIRECTED PT TO ARCHITECTURE TECHNICIAN HAYDE. RN MADE AYAN AWARE PT REQUIRES CONSTANT BEDSIDE CARE. PT IS UNABLE TO AMBULATE INDEPENDENTLY AND NEEDS COMPLETE ASSISTANCE FOR ALL ADLs. PER AYAN, HE LIVES WITH PT AND HIS FATHER. AYAN AND HIS FATHER CAN PROVIDE CARE. PER CRN, DR MORIN WILL BE ROUNDING IN THE AFTERNOON TO DECIDE IF PT WILL BE DISCHARGED. WILL CONTINUE TO MONITOR.
--- NOTE | 2020-02-09 11:58 | NUR ---
GEOMETRICIAN NOTE S/W PATIENTS SON AYAN OHWELL WHO EXPRESSED THAT HE IS REFUSING SNF PLACEMENT FOR HIS MOTHER AT THIS TIME D/T CONCERNS OF COVID. THIS CM EDUCATED PATIENTS SON ON RECOMMENDATION AND NEED FOR SNF PLACEMENT FOR REHAB. AYAN HOWELL CONTINUED TO BE FIRM ON DECISION TO HAVE PATIENT RETURN HOME UPON DC. PATIENTS SON INFORMED THAT MD WILL BE NOTIFIED OF REFUSAL FOR SNF. PATIENTS SON FURTHER STATED THAT HE WILL VISIT PATIENT TODAY AT 4 PM FOR FURTHER CLARIFICATION ON PATIENTS STATUS STATING THAT HIS MOTHER DOES NOT HAVE ANY FRACTURES.
[2020-02-09 12:00] VITALS: BP 110/72
--- NOTE | 2020-02-09 12:13 | Cardiac Electrophysiology PN ---
Assessment/Plan Assessment/Plan 1. Right shoulder as well as right rib fracture. Patient denies any prior myocardial infarction or coronary artery disease or any congestive heart failure. Echocardiogram showed ejection fraction of 60%. EKG showed NSR with Anterior T wave inversion 2. Humeral head fracture and multiple rib fractures. Nonsurgical per Orthopedic Surgery. Subjective Subjective No CP or SOB.Transfer to ARU pending. Objective Last 24 Hour Vital Signs Date Time Temp Pulse Resp B/P (MAP) Pulse Ox O2 Delivery O2 Flow Rate FiO2 02/09/20 09:00 Room Air 02/09/20 08:00 97.3 92 20 128/72 (90) 98 02/09/20 04:00 98.3 89 18 138/74 (95) 95 02/09/20 00:00 98.0 85 18 125/70 (88) 95 02/08/20 20:42 Room Air 02/08/20 20:00 98.4 86 18 121/60 (80) 95 02/08/20 16:00 98.2 96 18 116/73 (87) 95 Intake and Output 02/08/20 02/09/20 19:00 07:00 Intake Total 460 ml Balance 460 ml Intake Oral 460 ml # Voids 2 2 # Bowel Movements 1 Laboratory Tests Test 02/09/20 05:10 White Blood Count 6.0 K/UL (4.8-10.8) Red Blood Count 4.00 M/UL (4.20-5.40) L Hemoglobin 12.6 G/DL (12.0-16.0) Hematocrit 36.1 % (37.0-47.0) L Mean Corpuscular Volume 90 FL (80-99) Mean Corpuscular Hemoglobin 31.4 PG (27.0-31.0) H Mean Corpuscular Hemoglobin Concent 34.8 G/DL (32.0-36.0) Red Cell Distribution Width 11.4 % (11.6-14.8) L Platelet Count 241 K/UL (150-450) Mean Platelet Volume 5.4 FL (6.5-10.1) L Neutrophils (%) (Auto) 70.9 % (45.0-75.0) Lymphocytes (%) (Auto) 18.6 % (20.0-45.0) L Monocytes (%) (Auto) 8.3 % (1.0-10.0) Eosinophils (%) (Auto) 0.8 % (0.0-3.0) Basophils (%) (Auto) 1.4 % (0.0-2.0) Sodium Level 141 MMOL/L (136-145) Potassium Level 4.8 MMOL/L (3.5-5.1) Chloride Level 107 MMOL/L (98-107) Carbon Dioxide Level 31 MMOL/L (21-32) Anion Gap 3 mmol/L (5-15) L Blood Urea Nitrogen 18 mg/dL (7-18) Creatinine 0.7 MG/DL (0.55-1.30) Estimat Glomerular Filtration Rate > 60 mL/min (>60) Glucose Level 117 MG/DL (74-106) H Calcium Level 8.8 MG/DL (8.5-10.1) Objective HEAD AND NECK: No JVD. LUNGS: Clear. CARDIOVASCULAR: Regular S1 and S2 with no gallop or murmur. ABDOMEN: Soft. EXTREMITIES: Right shoulder is in a sling. Jesus Alberto Chong MD Feb 09, 2020 12:13
--- NOTE | 2020-02-09 13:55 | General Progress Note ---
Subjective Constitutional: Reports: weakness Allergies: Coded Allergies: PENICILLINS (Verified Allergy, Unknown, 02/06/20) Patient verbalized allergies to penicillin All Systems: reviewed and negative except above Subjective calm sitting sl gen pain Objective Last 24 Hour Vital Signs Date Time Temp Pulse Resp B/P (MAP) Pulse Ox O2 Delivery O2 Flow Rate FiO2 02/09/20 12:00 97.9 100 20 110/72 (85) 95 02/09/20 09:00 Room Air 02/09/20 08:00 97.3 92 20 128/72 (90) 98 02/09/20 04:00 98.3 89 18 138/74 (95) 95 02/09/20 00:00 98.0 85 18 125/70 (88) 95 02/08/20 20:42 Room Air 02/08/20 20:00 98.4 86 18 121/60 (80) 95 02/08/20 16:00 98.2 96 18 116/73 (87) 95 Intake and Output 02/08/20 02/09/20 19:00 07:00 Intake Total 460 ml Balance 460 ml Intake Oral 460 ml # Voids 2 2 # Bowel Movements 1 Laboratory Tests 02/09/20 05:10: White Blood Count 6.0, Red Blood Count 4.00L, Hemoglobin 12.6, Hematocrit 36.1L, Mean Corpuscular Volume 90, Mean Corpuscular Hemoglobin 31.4H, Mean Corpuscular Hemoglobin Concent 34.8, Red Cell Distribution Width 11.4L, Platelet Count 241, Mean Platelet Volume 5.4L, Neutrophils (%) (Auto) 70.9, Lymphocytes (%) (Auto) 18.6L, Monocytes (%) (Auto) 8.3, Eosinophils (%) (Auto) 0.8, Basophils (%) (Auto) 1.4, Sodium Level 141, Potassium Level 4.8, Chloride Level 107, Carbon Dioxide Level 31, Anion Gap 3L, Blood Urea Nitrogen 18, Creatinine 0.7, Estimat Glomerular Filtration Rate > 60, Glucose Level 117H, Calcium Level 8.8 Height (Feet): 4 Height (Inches): 10.00 Weight (Pounds): 91 General Appearance: alert EENT: normal ENT inspection Neck: normal alignment Cardiovascular: normal peripheral pulses, normal rate Respiratory/Chest: chest wall non-tender, lungs clear, normal breath sounds Abdomen: normal bowel sounds, non tender, soft Extremities: normal inspection Edema: no edema noted Arm (L), no edema noted Arm (R), no edema noted Leg (L), no edema noted Leg (R), no edema noted Pedal (L), no edema noted Pedal (R), no edema noted Generalized Neurologic: responsive, motor weakness Skin: normal pigmentation, warm/dry Assessment/Plan Problem List: (1) Weak ICD Codes: R53.1 - Weakness SNOMED: 05764190 (2) Humeral head fracture ICD Codes: S42.293A - Other displaced fracture of upper end of unspecified humerus, initial encounter for closed fracture SNOMED: 676569069 (3) Pain ICD Codes: R52 - Pain, unspecified SNOMED: 02931446 (4) Ribs, multiple fractures ICD Codes: S22.49XA - Multiple fractures of ribs, unspecified side, initial encounter for closed fracture SNOMED: 1645391 Status: stable, progressing Assessment/Plan: pt diet pain control dc w per pt request Darryl Francois DO Feb 09, 2020 13:55
--- NOTE | 2020-02-09 14:01 | NUR ---
NURSE NOTES: DR MORIN AT BEDSIDE AND SPOKE TO PT. DR MORIN AND RN EDUCATED PT ON WHY GOING TO ACUTE REHAB WILL BE MORE BENEFICIAL FOR PT. PT CONTINUED TO REFUSE AND STATES SHE WANTS TO GO HOME. PER DR MORIN, HE WILL PLACE ORDER FOR DISCHARGE HOME WITH HOME HEALTH.
--- NOTE | 2020-02-09 14:11 | NUR ---
NURSE NOTES: ORDER FOR DISCHARGE HOME WITH HOME HEALTH NOTED. MED RECONCILIATION NOT DONE. NO PAIN MEDICATION PRESCRIPTIONS NOTED IN CHART. RN LEFT MESSAGE FOR DR MORIN REGARDING PRESCRIPTIONS.
--- NOTE | 2020-02-09 14:20 | NUR ---
NURSE NOTES: RN SPOKE TO PT'S SON, AYAN REGARDING DR MORIN'S DISCHARGE HOME WITH HOME HEALTH. PER AYAN, HE WANTS TO TRY TO CONVINCE HIS MOTHER ONE MORE TIME TO GO TO REHAB. HE WILL BE AT HOSPITAL AT 1600HRS. RN MADE KRISTEN CHAND AWARE. PER DR MORIN, DR CRAIN WILL DO MED RECONCILIATION FOR DISCHARGE.
[2020-02-09 16:00] VITALS: BP 107/65
--- NOTE | 2020-02-09 16:20 | NUR ---
NURSE NOTES: SON AT BEDSIDE AND PT AGREED TO GO TO [facility] [place] FOR 1 WEEK. RN COMMUNICATED WITH SON AYAN, THAT PT IS NOT FULLY ALERT AND MAY CHANGE HER MIND. PER AYAN, OK TO SEND PT TO [facility] EVEN IF PT REFUSES LATER. PT IS NEXT OF KIN AND PRIMARY DECISION [employer]KER. RN MADE KRISTEN CHAND AWARE.
--- NOTE | 2020-02-09 16:22 | NUR ---
NURSE NOTES: PER DR CRAIN, NO MEDICATIONS UPON DISCHARGE.
--- NOTE | 2020-02-09 16:49 | NUR ---
*-*DISCHARGE PLANNED*-* PATIENT HAS BEEN ACCEPTED AND WILL BE DISCAHRGED TO: [facility] P: [phone] FOR NURSE REPORT ROOM# 405 [facility] SET FOR 6PM S/W COLIN [id number].
--- NOTE | 2020-02-09 18:01 | NUR ---
NURSE NOTES: TENA BOTELLO UPDATED [facility] TO [facility] PT AT 1800HRS. RN GAVE REPORT TO VIMAL AT [facility]. PT REFUSED TO EAT DINNER. IN NO APPARENT DISTRESS AT THIS TIME. WILL CONTINUE TO MONITOR.
--- NOTE | 2020-02-09 18:53 | NUR ---
NURSE NOTES: IV ACCESS DISCONTINUED. PT WAS DISCHARGED WITH [facility] TO [facility] IN STABLE CONDITION.
--- NOTE | 2020-02-11 07:16 | Discharge Summary ---
Discharge Summary Discharge Summary _ DATE OF ADMISSION: 02/06/2020 DATE OF DISCHARGE: 02/09/2020 DISCHARGED BY: Dr. Francois REASON FOR ADMISSION: 74 years old female , with no significant past medical history, presented for evaluation of right shoulder pain. According to patient and her , she sustained a fall last week to the right side. She denied head injury, loss of consciousness , seizure-like activity or back pain. She reported right shoulder and right chest wall pain. She was unable to move her right arm. She denied skin breakdown or laceration. No other injuries were reported. Upon evaluation patient was mildly tachycardic with heart rate of 108. Laboratory work-up revealed no leukocytosis , stable hemoglobin, hematocrit and platelet count. Sodium 133, potassium 5.1. Stable renal parameters . Glucose 96 . Stable LFT. Urinalysis revealed no evidence of urinary tract infection. X-ray of the right shoulder revealed displaced fracture of the right posterior 7 , [address] scan of the chest revealed acute impacted right humeral neck fracture. Acute fracture of the lateral right third through sixth ribs. Acute fracture of the posterior right seventh and eighth ribs. CT scan of the right shoulder revealed acute impacted right humeral neck fracture. Acute fracture of the lateral right third through sixth ribs. Rapid COVID-19 was negative. Patient admitted with multiply rib fracture and humeral head fracture. CONSULTANTS: orthopedic surgeon Dr. Chauhan emergency department aide Dr. Almeida pain specialist Dr. Simmons HOSPITAL COURSE: Patient admitted to medical surgical floor. Orthopedic surgeon seen and evaluated patient. Echocardiogram was done in preparation for possible surgery and revealed preserved ejection fraction. No evidence of wall motion abnormality. Right ventricular systolic pressure of 30. Orthopedic surgeon seen and evaluated patient. All findings were discussed with patient. No surgical intervention was necessarily at this time. Patient will need to stay in the sling and perform gentle pendulum exercises with the shoulder, elbow, hand and wrist to avoid stiffness. Patient should be nonweightbearing on the right side and ensure adequate pain control. Follow-up with orthopedic surgeon as outpatient in 2 weeks for updated x-ray . At this time her mobility probably will be advanced and she will be transition out of the sling, if fracture will appear stabilized and healing. Pain management was addressed as per pain specialist recommendation. Patient was working with physical therapist for gentle exercises as recommended by orthopedic surgeon. Fall precautions maintained. Supportive care provided. DVT prophylaxis provided. Patient subsequently was discharged to acute rehabilitation unit at [facility] for further rehabilitation. FINAL DIAGNOSES: Right impacted humeral neck fracture secondary to fall Right rib fractures , multiple Right shoulder and right chest wall pain - due to acute fracture DISCHARGE MEDICATIONS: List of medication was sent to facility. DISCHARGE INSTRUCTIONS: Patient was discharged to [facility] to acute rehabilitation unit. Follow-up with a doctor at the facility. I have been assigned to dictate discharge summary for this account. I was not involved in the patient's management. Lisa Paul NP Feb 11, 2020 07:16
== END 2020-02-09 18:50 | disposition short-term general hospital (02) | DRG 563 ==
LOC: EDBD 13:41 → EMR 14:20 → CMPBEDREQ 15:18 → 4E 15:40 → EDBEDREQ 17:06 → 4E 21:21
DX: S42.291A Other displaced fracture of upper end of right humerus, initial encounter for closed fracture (principal); S22.41XA Multiple fractures of ribs, right side, initial encounter for closed fracture; W01.0XXA Fall on same level from slipping, tripping and stumbling without subsequent striking against object, initial encounter; Y92.89 Other specified places as the place of occurrence of the external cause; Z88.0 Allergy status to penicillin
CPT/HCPCS: 36415; 71250; 80048; 80053; 81003; 82248; 83880; 84484; 85025; 85610; 85730; 93005; 93306; 96374; 99285; U0002